=== PATIENT | female | born 1975 | race Caucasian/White ===

== ENCOUNTER → 2016-08-22 | Outpatient (CLI) | payer OTHER ==
[~2016-08-22] MED LIST: IBUP600T44 PO; PRENTAB26 PO
[2016-08-22 11:08] LABS: BLOOD UREA NITROGEN 11 mg/dl (7-18); BUN/CREATININE RATIO 14.2 (10-20); CALCIUM 8.6 mg/dl (8.5-10.1); CARBON DIOXIDE 28 mmol/L (21-32); CHLORIDE 110 mmol/L (98-107); CREATININE 0.76 mg/dl (0.60-1.20); GLUCOSE 90 mg/dl (70-99); POTASSIUM 4.1 mmol/L (3.5-5.1); SODIUM 143 mmol/L (136-145)
[2016-08-22 11:12] LABS: CHOLESTEROL 224 mg/dl (0-200); CHOLESTEROL/HDL RATIO 3.9; HDL CHOLESTEROL 58 mg/dl; LDL CHOLESTEROL CALCULATED 146 mg/dl; TRIGLYCERIDES 101 mg/dl (0-150); VERY LOW DENSITY LIPOPROT CALC 20 mg/dl
== END | disposition home or self-care (01) ==
LOC: C.LABBC 07:55
PROVIDERS: ATTEND Nurse Practitioner Family
DX: Z13.220 Encounter for screening for lipoid disorders (principal)

== ENCOUNTER → 2016-12-17 | Outpatient (CLI) | payer OTHER | END | disposition home or self-care (01) | LOC: C.PAPS 09:44 | PROVIDERS: ATTEND Obstetrics & Gynecology | DX: Z12.4 Encounter for screening for malignant neoplasm of cervix (principal) ==

== ENCOUNTER 2017-08-03 20:21 | Emergency (ER) | payer OTHER ==
[~2017-08-03] VITALS: Ht 157.5 cm; Wt 74.2 kg
[2017-08-03 20:25] VITALS: Ht 157.5 cm; Wt 74.2 kg
[2017-08-03] MEDS ORDERED: SODIUM CHLORIDE 0.9% 1000ML 1,000 ML IV STA (20:46)
[2017-08-03] MEDS ORDERED: ACETAMINOPHEN 500 MG TAB PO STA (20:46)
[2017-08-03] MEDS ORDERED: CEFTRIAXONE SOD INJ 1 GM ADDVIAL IV STA (20:46)
[2017-08-03 21:14] LABS: BASO % 0.2 %; BASO ABS # 0.01 K/uL (0-0.2); EOS % 2.7 %; EOS ABS # 0.14 K/uL (0-0.5); HEMATOCRIT 39.1 % (37-47); HEMOGLOBIN 13.7 g/dL (12.0-16.0); IG# 0.01 K/uL (0.00-0.02); LYMPH % 13.3 %; LYMPH ABS # 0.68 K/uL (1.2-3.4); MEAN CELL VOLUME 84.1 fL (80-100); MEAN CORPUSCULAR HEMOGLOBIN 29.5 pg (25-34); MEAN PLATELET VOLUME 10.4 fL (7.4-10.4); MONO % 12.5 %; MONO ABS # 0.64 K/uL (0.11-0.59); NEUT % 71.1 %; NEUT ABS # 3.63 K/uL (1.4-6.5); PLATELET COUNT 178 K/uL (130-400); RED CELL DISTRIBUTION WIDTH CV 12.6 % (11.5-14.5); RED CELL DISTRIBUTION WIDTH SD 38.2 fL (36.4-46.3); WHITE BLOOD COUNT 5.11 K/uL (4.8-10.8)
[2017-08-03] MEDS ORDERED: CETI10TA84 PO (21:20)
[2017-08-03] MEDS ORDERED: CEPH500C2 PO (21:20)
[2017-08-03 21:29] LABS: CALCIUM 8.5 mg/dl (8.5-10.1); CREATININE 0.83 mg/dl (0.60-1.20); POTASSIUM 3.2 mmol/L (3.5-5.1)
[2017-08-03 21:36] LABS: INFLUENZA B ANTIGEN Neg for Influ B (NEG)
[2017-08-03] MEDS ORDERED: OSELTAMIVIR PHOSPHATE 75 MG CAP PO STA (22:02)
[2017-08-03] MEDS ORDERED: POTASSIUM CHLORIDE 10 MEQ TABCR PO STA (22:09)
[2017-08-03] MEDS ORDERED: OSEL75CA12 PO (22:12)
[2017-08-03] MEDS ORDERED: SULF800T23 PO (22:12)
[2017-08-03] MEDS ORDERED: SEPTRA DS HOME PACK 1 EA VIAL PO ONE (22:15)
[2017-08-03 22:16] VITALS: BP 132/72; PULSE 113; TEMP 37.5; O2SAT 98
--- NOTE | 2017-08-03 22:25 | EMERGENCY ROOM VISIT NOTE ---
History Report prepared by Nohemy: Rosalva Hines Under the Supervision of: Dr. Chico Poe M.D. First contact with patient: 20:29 Chief Complaint: BITE Stated Complaint: INFECTED SPIDER BITE W/ FEVER History of Present Illness The patient is a 41 year old female who presents to the Emergency Room with complaints of an episode of a spider bite on her left leg occurring three days ago. The patient saw her PCP three days ago and was put on Keflex. She reports redness around the site. She denies any discharge from the site. The patient reports over the past two days she developed a runny nose, nausea, fever and cough. Pt denies LOC, headache, chills, diaphoresis, visual changes, neck pain, chest pain, breathing difficulties, vomiting, abdominal pain, back pain, urinary symptoms, numbness, weakness, lymphadenopathy, rash, or other complaints. The patient got a flu shot three days ago. The patient denies any history of skin infections. She denies any recent sick contact. Source of History: patient Onset: three days ago Position: other (generalized) Quality: other (spider bite) Timing: other (episode) Associated Symptoms: + fevers, + cough, + nausea Review of Systems See HPI for pertinent positives and negatives. A total of ten systems were reviewed and were otherwise negative. Past Medical & Surgical Medical Problems: (1) No Known Active Medical Problems Family History Patient reports no known family medical history. Social History Smoking Status: Never Smoker Marital Status: Housing Status: lives with family Occupation Status: employed Current/Historical Medications Scheduled Cephalexin Monohydrate (Keflex), 500 MG PO TID Cetirizine (Zyrtec), 10 MG PO HS Oseltamivir (Tamiflu), 75 MG PO BID Sulfa/Trimethoprim (Bactrim Ds 800MG/160MG), 1 TAB PO BID Allergies Coded Allergies: No Known Allergies (Verified Allergy, Unknown, 12/03/03) Physical Exam Vital Signs Date Time Temp Pulse Resp B/P (MAP) Pulse Ox O2 Delivery O2 Flow Rate FiO2 08/03/17 22:16 37.5 113 16 132/72 98 Room Air 08/03/17 20:25 38.1 148 18 146/95 96 Room Air Physical Exam GENERAL: Awake, alert, mildly ill appearing, no distress HEAD: Normocephalic, atraumatic. No edema. EYES: Normal conjunctiva. Sclera non-icteric. EARS: Right TM normal. Left TM normal. NOSE: Mild congestion. OROPHARYNX: Lips, tongue, and mucosa unremarkable. No erythema or exudate. NECK: Supple. No nuchal rigidity. FROM. No adenopathy. Negative jolt accentuation test. RESPIRATORY: CTA bilaterally. No wheezes rales or rhonchi. CARDIAC: Tachycardic rate. Normal rhythm. No murmurs. No rubs. GI: Soft, non distended. No tenderness to palpation. NEURO: Normal sensorium. Normal speech. SKIN: Moderate area of redness in medial left thigh, small pustule in center, no induration, no fluctuance, no crepitus. No rash or jaundice noted. Medical Decision & Procedures Laboratory Results 08/03/17 20:50 Red Blood Count 4.65, Mean Corpuscular Volume 84.1, Mean Corpuscular Hemoglobin 29.5, Mean Corpuscular Hemoglobin Concent 35.0, Mean Platelet Volume 10.4, Neutrophils (%) (Auto) 71.1, Lymphocytes (%) (Auto) 13.3, Monocytes (%) (Auto) 12.5, Eosinophils (%) (Auto) 2.7, Basophils (%) (Auto) 0.2, Neutrophils # (Auto ) 3.63, Lymphocytes # (Auto) 0.68, Monocytes # (Auto) 0.64, Eosinophils # (Auto ) 0.14, Basophils # (Auto) 0.01 08/03/17 20:50 Test 08/03/17 20:50 White Blood Count 5.11 K/uL (4.8-10.8) Red Blood Count 4.65 M/uL (4.2-5.4) Hemoglobin 13.7 g/dL (12.0-16.0) Hematocrit 39.1 % (37-47) Mean Corpuscular Volume 84.1 fL (80-100) Mean Corpuscular Hemoglobin 29.5 pg (25-34) Mean Corpuscular Hemoglobin Concent 35.0 g/dl (32-36) Platelet Count 178 K/uL (130-400) Mean Platelet Volume 10.4 fL (7.4-10.4) Neutrophils (%) (Auto) 71.1 % Lymphocytes (%) (Auto) 13.3 % Monocytes (%) (Auto) 12.5 % Eosinophils (%) (Auto) 2.7 % Basophils (%) (Auto) 0.2 % Neutrophils # (Auto) 3.63 K/uL (1.4-6.5) Lymphocytes # (Auto) 0.68 K/uL (1.2-3.4) Monocytes # (Auto) 0.64 K/uL (0.11-0.59) Eosinophils # (Auto) 0.14 K/uL (0-0.5) Basophils # (Auto) 0.01 K/uL (0-0.2) RDW Standard Deviation 38.2 fL (36.4-46.3) RDW Coefficient of Variation 12.6 % (11.5-14.5) Immature Granulocyte % (Auto) 0.2 % Immature Granulocyte # (Auto) 0.01 K/uL (0.00-0.02) Anion Gap 8.0 mmol/L (3-11) Est Creatinine Clear Calc Drug Dose 84.1 ml/min Estimated GFR () 101.5 Estimated GFR (Non- 87.6 BUN/Creatinine Ratio 13.0 (10-20) Calcium Level 8.5 mg/dl (8.5-10.1) Influenza Type A Antigen POS for Influ A (NEG) Influenza Type B Antigen Neg for Influ B (NEG) Laboratory results reviewed by me Medications Administered Medications (Trade) Dose Ordered Sig/Bairon Route Start Time Stop Time Status Last Admin Dose Admin Acetaminophen (Tylenol Tab) 1,000 mg NOW STAT PO 08/03/17 20:46 08/03/17 20:48 DC 08/03/17 21:07 1,000 MG Ceftriaxone Sodium (Rocephin Inj) 1 gm NOW STAT IV 08/03/17 20:46 08/03/17 20:48 DC 08/03/17 21:07 1 GM Sodium Chloride 1,000 ml @ 999 mls/hr Q1H1M STAT IV 08/03/17 20:46 08/03/17 21:46 DC 08/03/17 20:46 999 MLS/HR ED Course 2030: The patient was evaluated in room C10. A complete history and physical exam was performed. 2045: Ordered Sodium Chloride 1000 ml @ 999 mls/hr IV, Rocephin Inj 1 gm IV, Acetaminophen 1000 mg PO. 2201: Ordered Tamiflu Cap 75 mg PO. 2203: I updated the patient on her test results. 2208: Ordered Potassium Chloride 20 meq PO. 2214: Ordered Trimethoprim/Sulfamethoxazole 1 homepack PO. 2217: I reevaluated the patient. Discussed results and discharge instructions: She verbalized understanding and agreement. The patient is ready for discharge. Medical Decision Triage Nursing notes reviewed. The patient's presentation and history were concerning for a worsening leg infection as well as flulike symptoms. Etiologies such as cellulitis,Viral syndrome, influenza,abscess, MRSA infection , dermatitis, drug eruption,necrotizing fasciitis, DVT as well as others were entertained. The patient was evaluated. She had some mild cellulitis in the left leg. There is a small pustule in the center. There was no significant fluctuance. I did prep the skin with alcohol and remove the roof of this pustule. This was cultured. There is a scant amount of drainage. There is no underlying abscess. The outline of the cellulitis was marked by me with a surgical marker. The patient had blood work obtained. Her CBC was unremarkable. Chemistry panel reveals mild hypokalemia. Due to her sudden onset of flulike symptoms a flu test was performed and this was positive for influenza A. The patient was treated with IV Rocephin for the cellulitis. She was given Tamiflu for her influenza. She was also given of fluids consisting of normal saline. She was orally hydrated. The patient also was given Tylenol. She was feeling somewhat better. Cultures are pending on the leg infection. She was placed on Bactrim and will continue the Keflex pending culture results. The patient will be treated with Tamiflu by prescription. She will use Motrin and Tylenol. Given a work note. She worsens in any way she will be back. She will follow- up with her primary physician this week. I gave my usual and customary discussion regarding this issue. By the evaluation outlined above other emergent etiologies such as those listed in the differential, as well as others, were deemed relatively unlikely. The patient was educated about the findings as listed above. All questions were answered and the patient was pleased with the treatment. Return instructions were outlined and the patient was discharged in stable condition. The patient was referred to her PCP for follow-up for a recheck of the current condition. Medication Reconcilliation Current Medication List: was personally reviewed by me Blood Pressure Screening Patient's blood pressure: Elevated blood pressure Blood pressure disposition: Referred to PCP Impression Primary Impression: Cellulitis Additional Impressions: Influenza A Hypokalemia Scribe Attestation The scribe's documentation has been prepared under my direction and personally reviewed by me in its entirety. I confirm that the note above accurately reflects all work, treatment, procedures, and medical decision making performed by me. Departure Information Dispostion Home / Self-Care Prescriptions Sulfa/Trimethoprim (Bactrim Ds 800MG/160MG) Tab 1 TAB PO BID, #14 TAB Prov: Chico Poe MD 08/03/17 Oseltamivir (Tamiflu) 75 Mg Cap 75 MG PO BID, #9 CAP Prov: Chico Poe MD 08/03/17 Referrals Jose Elias Tadeo III, CRNP (PCP) Forms HOME CARE DOCUMENTATION FORM, IMPORTANT VISIT INFORMATION Patient Instructions My [facility] Additional Instructions Influenza testing was positive. Tamiflu 75 mg twice daily for 5 days for the flu. Regarding the skin infection (cellulitis): Finish the Cephalexin(Keflex) 500mg: Take one pill four times daily for for your skin infection. All antibiotics can cause diarrhea. If this occurs and you feel worse or it does not resolve in 1-2 days follow up with your doctor or return to the Emergency Department as this could be signs of serious underlying problems. Any medication can cause an allergic reaction, stop the pills immediately and return to the ER for rash, hives, breathing difficulties, or swelling. Trimethoprim-Sulfamethoxazole(Bactrim DS): Take one pill twice daily for 7 days for your skin infection. All antibiotics can cause diarrhea. If this occurs and you feel worse or it does not resolve in 1-2 days follow up with your doctor or return to the Emergency Department as this could be signs of serious underlying problems. Any medication can cause an allergic reaction, stop the pills immediately and return to the ER for rash, hives, breathing difficulties, or swelling. Ibuprofen(Motrin, Advil) may be used for fever or pain. Use 600mg every six hours as needed. Take with food. Avoid using more than 2400mg in a 24 hour period. Do not use 2400mg per day for more than three consecutive days without physician direction. Prolonged inappropriate use can lead to stomach upset or ulcers. (AND/OR) Acetaminophen(Tylenol) may be used for fever or pain. Use 1000mg every six hours as needed. Avoid using more than 4000mg in a 24 hour period. Warm compresses to the affected area 4 times daily for 15-20 minutes. Rest and drink plenty of fluids. Continue current medications. Return to the ER for severe pain, persistent fevers, spreading redness, difficulty breathing, vomiting, chest pain, severe headache, or any worsening of your condition. Follow up with your primary physician within 2-3 days for a recheck of the current condition. Problem Qualifiers
== END 2017-08-03 22:26 | disposition home or self-care (01) ==
LOC: C.EDB 20:23 → C.EDC 22:26
DX: L03.116 Cellulitis of left lower limb (principal); J10.1 Influenza due to other identified influenza virus with other respiratory manifestations; E87.6 Hypokalemia; S80.862A Insect bite (nonvenomous), left lower leg, initial encounter; W57.XXXA Bitten or stung by nonvenomous insect and other nonvenomous arthropods, initial encounter

== ENCOUNTER → 2017-08-19 | Outpatient (CLI) | payer OTHER ==
[~2017-08-19] MED LIST changes: +CEPH500C2 PO; +CETI10TA84 PO; -IBUP600T44 PO; +OSEL75CA12 PO; -PRENTAB26 PO; +SULF800T23 PO
[2017-08-19 11:42] LABS: ALBUMIN 3.7 gm/dl (3.4-5.0); ALT/SGPT 29 U/L (12-78); AST/SGOT 9 U/L (15-37); BLOOD UREA NITROGEN 14 mg/dl (7-18); CALCIUM 8.7 mg/dl (8.5-10.1); CARBON DIOXIDE 27 mmol/L (21-32); CHOLESTEROL 202 mg/dl (0-200); CREATININE 0.69 mg/dl (0.60-1.20); GLUCOSE 92 mg/dl (70-99); POTASSIUM 3.6 mmol/L (3.5-5.1); SODIUM 138 mmol/L (136-145)
[2017-08-19 11:44] LABS: ALKALINE PHOSPHATASE 47 U/L (45-117); LDL CHOLESTEROL CALCULATED 131 mg/dl; TOTAL PROTEIN 6.8 gm/dl (6.4-8.2)
== END | disposition home or self-care (01) ==
LOC: C.LABBC 07:42
PROVIDERS: ATTEND Nurse Practitioner Family
DX: Z00.00 Encounter for general adult medical examination without abnormal findings (principal); E78.00 Pure hypercholesterolemia, unspecified

== ENCOUNTER → 2017-08-21 | Outpatient (CLI) | payer OTHER ==
--- NOTE | 2017-08-21 15:17 | MAMMOGRAPHY REPORT ---
BILATERAL DIGITAL SCREENING MAMMOGRAM TOMOSYNTHESIS WITH CAD: 08/21/2017 CLINICAL HISTORY: Routine screening. Baseline exam. TECHNIQUE: Breast tomosynthesis in addition to standard 2D mammography was performed. Current study was also evaluated with a Computer Aided Detection (CAD) system. COMPARISON: No prior exams were available for comparison. BREAST COMPOSITION: There are scattered areas of fibroglandular density in both breasts. FINDINGS: No suspicious masses, calcifications, or areas of architectural distortion are noted in ei ther breast. IMPRESSION: ACR BI-RADS CATEGORY 1: NEGATIVE There is no mammographic evidence of malignancy. A 1 year screening mammogram is recommended. The pa tient will receive written notification of the results. Approximately 10% of breast cancers are not detected with mammography. A negative mammographic report should not delay biopsy if a clinically suggestive mass is present. Amina Bonner M.D. ah/:08/21/2017 13:56:04 Psychiatric Social Worker Supervisor: Carina WOLFE)([place]), [facility] letter sent: Normal 1/2 BI-RADS Code: ACR BI-RADS Category 1: Negative
== END | disposition home or self-care (01) ==
LOC: C.MAMM 13:17
PROVIDERS: ATTEND Obstetrics & Gynecology
DX: Z12.31 Encounter for screening mammogram for malignant neoplasm of breast (principal)